=== PATIENT | male | born 1980 | race Two or more races ===

== ENCOUNTER 2025-01-30 04:00 | Emergency (ER) | payer MEDICAID ==
[~2025-01-30] VITALS: Ht 175.3 cm; Wt 122.7 kg
[2025-01-30 04:14] VITALS: BP 149/80; PULSE 97; RESP 17; O2SAT 95
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
[2025-01-30 04:27] VITALS: TEMP 98.7
--- NOTE | 2025-01-30 08:06 | ELECTROCARDIOGRAPH REPORT ---
[facility] Test Date: 2025-01-30 Test Time: 04:13:29 Pat Name: MARC ROSEN Department: EMERGENCY ROOM Room: Gender: M Senior User Experience Architect: ALEKSANDRA : 1980 Requested By: DEPARTMENT EMERGENCY Order Number: [id number] Reading MD: Dr. Marcial Hylton Measurements Intervals [place] Rate: 94 P: 52 ID: [id number] QRS: 20 QRSD: 84 T: 28 QT: 340 QTc: 426 Interpretive Statements Sinus rhythm Probable left atrial enlargement Electronically Signed On 01-30-2025 11:30:[address] Marcail Hylton Please click the below link to view image of tracing.
== END 2025-01-30 04:32 ==
LOC: ER 04:01
DX: R07.9 Chest pain, unspecified (principal); R06.02 Shortness of breath
CPT/HCPCS: 82948; 93005; 99283